=== PATIENT | male | born 1970 | race Caucasian/White ===

== ENCOUNTER 2021-05-12 12:26 | Emergency (ER) | payer BC ==
[2021-05-12] MEDS ORDERED: Sodium Chloride 0.9% 1,000 ML IV ONE (12:49)
[2021-05-12] MEDS ORDERED: Ondansetron 4 MG/2 ML SDV IVPUSH ONE ×2 (12:49→13:53)
[2021-05-12] MEDS ORDERED: Ketorolac 30 MG/ML SDV IVPUSH ONE (12:49)
[2021-05-12 13:19] LABS: BLOOD UREA NITROGEN,BUN 18 mg/dL (7.0-18.0); CARBON DIOXIDE,CO2 23.9 mmol/L (21.0-32.0); CHLORIDE,CL 103 mmol/L (98-107); GLUCOSE RANDOM 117 mg/dL (74-106); LIPASE 67 U/L (73-393); POTASSIUM,K 3.7 mmol/L (3.5-5.1); SODIUM,NA 143 mmol/L (136-148)
--- NOTE | 2021-05-12 13:41 | CT ---
For Patients: As a result of the Century Cures Act, medical imaging exams and procedure reports are released immediately into your electronic medical record. You may view this report before your referring provider. If you have questions, please contact your health care provider. INDICATION: Left flank pain. TECHNIQUE: CT abdomen and pelvis without intravenous contrast. Coronal and sagittal reformats. COMPARISON: None available. FINDINGS: Imaged lower chest unremarkable. The unenhanced liver, gallbladder, pancreas, spleen, and adrenals are unremarkable. Left kidney appears diffusely hypoattenuating relative to the right kidney. Left ureterovesical junction 2-3 mm calculus with mild-moderate upstream hydroureteronephrosis. Tiny nonobstructing right renal calculi without right-sided hydronephrosis. Unremarkable bladder and prostate. The bowel appears normal in caliber and thickness diffusely. No free air, free fluid, focal collection, or lymphadenopathy. Small left greater than right fat containing inguinal hernias. Normal caliber abdominal aorta. Mild lower lumbar spondylosis. IMPRESSION: 1. Left ureterovesical junction 2-3 mm calculus with mild-moderate upstream hydroureteronephrosis. 2. Tiny nonobstructing right renal calculi. Dictated by Kane Luna MD @ 05/12/2021 1:40:04 PM Please note that all CT scans at this facility use dose modulation, iterative reconstruction, and/or weight-based dosing when appropriate to reduce radiation dose to as low as reasonably achievable. Dictated by: Kane Luna MD @ 05/12/2021 13:40:18 (Electronically Signed)
[2021-05-12] MEDS ORDERED: HYDROmorphone 2 MG/ML Syringe IVPUSH ONE (13:47)
--- NOTE | 2021-05-12 14:06 | EDM.PDOC ---
ED HPI GENERAL MEDICAL PROBLEM - General Chief Complaint: Flank Pain Stated Complaint: abd pain Time Seen by Provider: 05/12/21 12:35 Source of Information: Reports: Patient History Limitations: Reports: No Limitations - History of Present Illness INITIAL COMMENTS - FREE TEXT/NARRATIVE: HISTORY AND PHYSICAL: History of present illness: Patient is a 50-year-old male who presents to the ED today with concern of sharp sudden left-sided flank pain that began at about 11 this morning and radiates and wraps around the front. Patient states that he is able to urinate but he also has a sensation that his "urine is backed up ". Patient states that since then, he has had a difficult time with sitting and feels like he has to pace due to the left flank pain. Patient states he has a history of appendicitis but denies any other abdominal surgeries or any other health history. Patient states that he feels nauseous but denies any vomiting. Patient denies any other symptoms or concerns. Patient denies fever, chills, chest pain, shortness of breath, or cough. Denies headache, neck stiff ness, change in vision, syncope, or near syncope. Denies vomiting, diarrhea, constipation, or dysuria. Has not noted any blood in urine or stool. Patient has been eating and drinking appropriately prior to onset of symptoms. Review of systems: As per history of present illness and below otherwise all systems reviewed and negative. Past medical history: As per history of present illness and as reviewed below otherwise noncontributory. Surgical history: As per history of present illness and as reviewed below otherwise noncontributory. Social history: See social history for further information Family history: As per history of present illness and as reviewed below otherwise noncontributory. Physical exam: General: Patient is alert, oriented, and in no acute distress. Patient walking back and forth in exam room holding left flank. Vitals stable and reviewed by me. HEENT: Atraumatic, normocephalic, pupils equal and reactive bilaterally, negative for conjunctival pallor or scleral icterus, mucous membranes moist, TMs normal bilaterally, throat clear, neck supple, nontender, trachea midline. No drooling or trismus noted. No meningeal signs. No hot potato voice noted. Lungs: Clear to auscultation, breath sounds equal bilaterally, chest nontender. Heart: S1S2, regular rate and rhythm without overt murmur Abdomen: Soft, nondistended, nontender. Negative for masses or hepatosplenomegaly. Positive for costovertebral tenderness of the left, Pelvis: Stable nontender. Genitourinary: Deferred. Rectal: Deferred. Skin: Intact, warm, dry. No lesions or rashes noted. Extremities: Atraumatic, negative for cords or calf pain. Neurovascular unremarkable. Neuro: Awake, alert, oriented. Cranial nerves II through XII unremarkable. Cerebellum unremarkable. Motor and sensory unremarkable throughout. Exam nonfocal. Notes: Patient is a 50-year-old male presents emergency room today secondary to left- sided flank pain that was sudden onset at about 11 this morning. Upon arrival to the ED, patient is walking back and forth in exam room and holding left flank area with positive CVA tenderness of the left. Will obtain lab work as well as abdominal pelvic CT scan without contrast. Mild derangements of CBC unremarkable. CMP shows mild elevation in glucose at 117, and bili at 1.1, otherwise CMP unremarkable. Lipase within normal limits, urinalysis is greater than 80 ketones otherwise clear for signs of infection. Abdominal pelvic CT scan shows left uterovesical junction 2 to 3 mm calculus with mild to moderate upstream hydroureter nephrosis. Tiny nonobstructing right renal calculi. Patient does have one episode of emesis and initially had declined narcotic pain medication but is now willing to receive narcotics. Will provide a dose of Dilaudid and additional Zofran and reassess patient. Following Dilaudid and additional Zofran, patient expresses near resolution of his pain and discomfort and states he feels well enough to go home. Patient's urine is clear infection and renal function testing within normal limits. Strict return precautions thoroughly discussed with patient. Discussed importance for follow-up with a primary care provider. Voices understanding and is agreeable to plan of care. Denies any further questions or concerns at this time. Diagnostics: CBC, CMP, UA, Lipase, Abd/pelvic ct w/o cont Therapeutics: Toradol, Zofran, Dilaudid Prescription: Flomax, Zofran, oxycodone 5/325 (#15) Impression: Ureterolithiasis, left Plan: 1. Use the urine strainer that has been provided to you in order to try to collect the stone. Once you have collect the stone, this can be brought to your primary care provider for additional lab testing. 2. Follow-up with your primary care provider and urologist as discussed. Return to the ED as needed and as discussed. 3. Take medication as prescribed. Caution when using oxycodone as this medication can cause drowsiness and sedation. Do not use this medication when driving any vehicle or heavy machinery. Caution when standing as this medication can increase the risk for falls so move slowly and stand up slowly when on this medication. 4. You can alternate ibuprofen and Tylenol as directed for pain and discomfort. Caution when using any additional Tylenol as the oxycodone/Percocet has 325 mg of Tylenol within the tab. Take this into consideration with any additional Tylenol dosing. Definitive disposition and diagnosis as appropriate pending reevaluation and review of above. Left Flank Pain Score (Numeric/FACES): 10 - Related Data Allergies Allergy/AdvReac Type Severity Reaction Status Date / Time codeine Allergy Nausea and Verified 05/12/21 13:01 Vomiting Home Meds: Home Meds Acetaminophen/oxyCODONE [Percocet 325-5 MG] 1 each PO Q6H PRN #15 tab 05/12/21 [Rx] Latanoprostene Bunod [Vyzulta] 1 drop EYEBOTH ASDIRECTED 05/12/21 [History] Ondansetron [Zofran ODT] 4 mg PO Q6H PRN #8 tab.dis 05/12/21 [Rx] Tamsulosin HCl [Flomax] 0.4 mg PO DAILY #5 cap.er.24h 05/12/21 [Rx] Past Medical History HEENT History: Reports: Glaucoma - Infectious Disease History Infectious Disease History: Reports: None - Past Surgical History GI Surgical History: Reports: Appendectomy Social & Family History - Family History Family Medical History: No Pertinent Family History - Tobacco Use Tobacco Use Status *Q: Never Tobacco User - Caffeine Use Caffeine Use: Reports: None - Recreational Drug Use Recreational Drug Use: No ED ROS GENERAL - Review of Systems Review Of Systems: Comprehensive ROS is negative, except as noted in HPI. ED EXAM, GENERAL - Physical Exam Exam: See Below (see dictation) Course - Vital Signs Last Recorded V/S: Last Vital Signs Temp 96.8 F L 05/12/21 13:02 Pulse 72 05/12/21 13:02 Resp 20 05/12/21 13:02 BP 111/75 05/12/21 13:02 Pulse Ox 99 05/12/21 13:02 - Orders/Labs/Meds Orders: Active Orders 24 hr Category Date Time Status DME for Discharge [COMM] Stat Oth 05/12/21 14:26 Ordered Labs: Laboratory Tests 05/12/21 05/12/21 05/12/21 Range/Units 12:46 12:52 12:52 WBC 6.18 (4.0-11.0) K/uL RBC 4.71 (4.50-5.90) M/uL Hgb 15.4 (13.0-17.0) g/dL Hct 44.2 (38.0-50.0) % MCV 93.8 (80.0-98.0) fL MCH 32.7 H (27.0-32.0) pg MCHC 34.8 (31.0-37.0) g/dL RDW Std Deviation 44.3 (28.0-62.0) fl RDW Coeff of Radha 13 (11.0-15.0) % Plt Count 193 (150-400) K/uL MPV 11.70 (7.40-12.00) fL Neut % (Auto) 60.4 (48.0-80.0) % Lymph % (Auto) 25.1 (16.0-40.0) % Gates % (Auto) 12.5 (0.0-15.0) % Eos % (Auto) 1.5 (0.0-7.0) % Baso % (Auto) 0.5 (0.0-1.5) % Neut # (Auto) 3.7 (1.4-5.7) K/uL Lymph # (Auto) 1.6 (0.6-2.4) K/uL Gates # (Auto) 0.8 (0.0-0.8) K/uL Eos # (Auto) 0.1 (0.0-0.7) K/uL Baso # (Auto) 0.0 (0.0-0.1) K/uL Nucleated RBC % 0.0 /100WBC Nucleated RBCs # 0 K/uL Sodium 143 (136-148) mmol/L Potassium 3.7 (3.5-5.1) mmol/L Chloride 103 (98-107) mmol/L Carbon Dioxide 23.9 (21.0-32.0) mmol/L BUN 18 (7.0-18.0) mg/dL Creatinine 1.1 (0.8-1.3) mg/dL Est Cr Clr Drug Dosing 82.03 mL/min Estimated GFR (MDRD) > 60.0 ml/min Glucose 117 H (74-106) mg/dL Calcium 8.7 (8.5-10.1) mg/dL Total Bilirubin 1.1 H (0.2-1.0) mg/dL AST 25 (15-37) IU/L ALT 28 (14-63) IU/L Alkaline Phosphatase 60 (46-116) U/L Total Protein 6.9 (6.4-8.2) g/dL Albumin 4.2 (3.4-5.0) g/dL Globulin 2.7 (2.6-4.0) g/dL Albumin/Globulin Ratio 1.6 (0.9-1.6) Lipase 67 L (73-393) U/L Urine Color YELLOW Urine Appearance CLEAR Urine pH 7.0 (5.0-8.0) Ur Specific [place] 1.020 (1.001-1.035) Urine Protein NEGATIVE (NEGATIVE) mg/dL Urine Glucose (UA) NEGATIVE (NEGATIVE) mg/dL Urine Ketones >=80 (NEGATIVE) mg/dL Urine Occult Blood NEGATIVE (NEGATIVE) Urine Nitrite NEGATIVE (NEGATIVE) Urine Bilirubin NEGATIVE (NEGATIVE) Urine Urobilinogen 0.2 (<2.0) EU/dL Ur Leukocyte Esterase NEGATIVE (NEGATIVE) Meds: Medications Discontinued Medications Generic Name Dose Route Start Last Admin Trade Name Deon PRN Reason Stop Dose Admin Hydromorphone HCl 0.5 mg 05/12/21 13:47 05/12/21 13:59 Hydromorphone 2 Mg/Ml Syringe IVPUSH 05/12/21 13:48 0.5 mg ONETIME ONE Administration Sodium Chloride 1,000 mls @ 999 mls/hr 05/12/21 12:49 05/12/21 12:56 Normal Saline IV 05/12/21 13:49 999 mls/hr BOLUS ONE Administration Ketorolac Tromethamine 30 mg 05/12/21 12:49 05/12/21 12:56 Ketorolac 30 Mg/Ml Sdv IVPUSH 05/12/21 12:50 30 mg ONETIME ONE Administration Ondansetron HCl 4 mg 05/12/21 12:49 05/12/21 12:56 Ondansetron 4 Mg/2 Ml Sdv IVPUSH 05/12/21 12:50 4 mg ONETIME ONE Administration Ondansetron HCl 4 mg 05/12/21 13:53 05/12/21 13:59 Ondansetron 4 Mg/2 Ml Sdv IVPUSH 05/12/21 13:54 4 mg ONETIME ONE Administration Departure - Departure Time of Disposition: 14:34 Disposition: Home, Self-Care 01 Clinical Impression: Ureterolithiasis - Discharge Information Prescriptions: Tamsulosin HCl [Flomax] 0.4 mg PO DAILY #5 cap.er.24h Acetaminophen/oxyCODONE [Percocet 325-5 MG] 1 each PO Q6H PRN #15 tab PRN Reason: Pain (Severe 7-10) Ondansetron [Zofran ODT] 4 mg PO Q6H PRN #8 tab.dis PRN Reason: Nausea/Vomiting Referrals: Morro Almeida MD [Primary Care Provider] - Forms: ED Department Discharge Additional Instructions: The following information is given to patients seen in the emergency department who are being discharged to home. This information is to outline your options for follow-up care. We provide all patients seen in our emergency department with a follow-up referral. The need for follow-up, as well as the timing and circumstances, are variable depending upon the specifics of your emergency department visit. If you don't have a primary care physician on staff, we will provide you with a referral. We always advise you to contact your personal physician following an emergency department visit to inform them of the circumstance of the visit and for follow-up with them and/or the need for any referrals to a consulting specialist. The emergency department will also refer you to a specialist when appropriate. This referral assures that you have the opportunity for follow-up care with a specialist. All of these measure are taken in an effort to provide you with optimal care, which includes your follow-up. Under all circumstances we always encourage you to contact your private physician who remains a resource for coordinating your care. When calling for follow-up care, please make the office aware that this follow-up is from your recent emergency room visit. If for any reason you are refused follow-up, please contact the [facility] Emergency Department at and asked to speak to the emergency department charge nurse. [facility] [address] [place] [address] [facility] [address] [place] [id number] Kandis Hutton DO, FACOS, Urology [address] [address], 5th floor 1. Use the urine strainer that has been provided to you in order to try to collect the stone. Once you have collect the stone, this can be brought to your primary care provider for additional lab testing. 2. Follow-up with your primary care provider and urologist as discussed. Return to the ED as needed and as discussed. 3. Take medication as prescribed. Caution when using oxycodone as this medication can cause drowsiness and sedation. Do not use this medication when driving any vehicle or heavy machinery. Caution when standing as this medication can increase the risk for falls so move slowly and stand up slowly when on this medication. 4. You can alternate ibuprofen and Tylenol as directed for pain and discomfort. Caution when using any additional Tylenol as the oxycodone/Percocet has 325 mg of Tylenol within the tab. Take this into consideration with any additional Tylenol dosing. Sepsis Event Note (ED) - Evaluation Sepsis Screening Result: No Definite Risk - Focused Exam Vital Signs: Vital Signs Temp Pulse Resp BP Pulse Ox 05/12/21 13:02 96.8 F L 72 20 111/75 99 - My Orders Last 24 Hours: My Active Orders 05/12/21 14:26 DME for Discharge [COMM] Stat - Assessment/Plan Last 24 Hours: My Active Orders 05/12/21 14:26 DME for Discharge [COMM] Stat
== END 2021-05-12 15:07 | disposition home or self-care (01) ==
LOC: MW.ED 12:26
DX: N13.2 Hydronephrosis with renal and ureteral calculous obstruction (principal); Z88.5 Allergy status to narcotic agent
CPT/HCPCS: 36415; 74176; 80053; 81003; 83690; 85025; 96374; 96375; 96376; 99284; J1170; J1885; J2405; J7030

== ENCOUNTER 2022-04-20 19:11 | Emergency (ER) | payer BC | END 2022-04-20 21:17 | disposition home or self-care (01) | LOC: MW.ED 19:11 | DX: U07.1 COVID-19 (principal) | CPT/HCPCS: 71045; 71045-26; 99282; 99284-25; U0002 ==

== ENCOUNTER 2022-11-29 09:58 | Emergency (ER) | payer OTHER, BC | END 2022-11-29 11:55 | disposition home or self-care (01) | LOC: MW.ED 09:58 | DX: S92.514A Nondisplaced fracture of proximal phalanx of right lesser toe(s), initial encounter for closed fracture (principal); Z88.5 Allergy status to narcotic agent; W20.8XXA Other cause of strike by thrown, projected or falling object, initial encounter; Y99.0 Civilian activity done for income or pay | CPT/HCPCS: 73630-26-RT; 73630-RT; 99283 ==